=== PATIENT | male | born 1960 | race Caucasian/White ===

== ENCOUNTER 2018-06-06 14:39 | Inpatient (IN) | payer MEDICAID, OTHER ==
[~2018-06-06] VITALS: Ht 167.6 cm; Wt 82.9 kg
[2018-06-06] MEDS ORDERED: ESCI20TA PO (15:23)
[2018-06-06] MEDS ORDERED: ARIP10TA8 PO (15:23)
[2018-06-06] MEDS ORDERED: TRAZ-220 PO (15:23)
[2018-06-06 16:18] LABS: BASOPHILS % (AUTO) 1.2 % (0.0-2.0); EOSINOPHILS % (AUTO) 0.9 % (1.0-6.0); HEMATOCRIT 42.8 % (41-53); HEMOGLOBIN 14.9 g/dL (13.5-17.5); LYMPHOCYTES % (AUTO) 14.8 % (22.0-44.0); MEAN CORPUSCULAR HEMOGLOBIN 31.8 pg (26.0-34.0); MEAN CORPUSCULAR HGB CONC 34.8 G/dL (31.0-37.0); MEAN CORPUSCULAR VOLUME 92 fL (80-100); MONOCYTES # (AUTO) 0.4 K/uL (0.1-1.0); MONOCYTES % (AUTO) 6.3 % (2.0-9.0); NEUTROPHILS % (AUTO) 76.8 % (40.0-70.0); PLATELET COUNT (AUTO) 246 K/uL (150-450); RED BLOOD CELL COUNT(AUTO) 4.68 MIL/uL (4.50-5.90); RED CELL DISTRIBUTION WIDTH 13.2 % (11.5-14.5)
[2018-06-06 16:30] LABS: ANION GAP 8 mmol/L (8-16); CALCIUM, TOTAL 9.3 mg/dL (8.8-10.5); CARBON DIOXIDE 28 mmol/L (22-29); CHLORIDE 106 mmol/L (98-107); CREATININE 1.04 mg/dL (0.60-1.30); GLOMERULAR FILTR. RATE CALC > 60 mL/min (>60); GLUCOSE,RANDOM 85 mg/dL (70-110); POTASSIUM 4.2 mmol/L (3.5-5.1); SODIUM SERUM 142 mmol/L (136-145); UREA NITROGEN, BLOOD 12 mg/dL (7-18)
[2018-06-06 16:35] LABS: ALANINE AMINOTRANSFERASE 14 U/L (12-78); ALBUMIN 4.1 g/dL (3.4-5.0); ALKALINE PHOSPHATASE 79 U/L (46-116); ASPARTATE AMINOTRANSFERASE 9 U/L (15-37); BILIRUBIN,TOTAL 0.4 mg/dL (0.1-1.0); TOTAL PROTEIN, SERUM 7.8 g/dL (6.4-8.2)
[2018-06-06 17:26] LABS: AMPHET/METH SCREEN,URINE NEGATIVE (NEGATIVE); BARBITURATE SCREEN, URINE NEGATIVE (NEGATIVE); BENZODIAZEPINES SCREEN,URINE NEGATIVE (NEGATIVE); CANNABINOID SCREEN,URINE NEGATIVE (NEGATIVE); COCAINE SCREEN,URINE NEGATIVE (NEGATIVE); METHADONE SCREEN, URINE NEGATIVE (NEGATIVE); OPIATE SCREEN,URINE NEGATIVE (NEGATIVE); PHENCYCLIDINE SCREEN,URINE NEGATIVE (NEGATIVE)
[2018-06-06] MEDS ORDERED: LOPERAMIDE HCL 2 MG CAPSULE PO PRN (17:45)
[2018-06-06] MEDS ORDERED: MAG HYDROX/AL HYDROX/SIMETH ES 30 ML SUSPENSION UDCUP PO PRN (17:45)
[2018-06-06] MEDS ORDERED: GuaiFENesin/D-METHORPHAN [SUGAR-FREE] 200-20MG/10 ML SYRUP UDCUP PO PRN (17:45)
[2018-06-06] MEDS ORDERED: PROMETHAZINE HCL 25 MG TABLET PO PRN (17:45)
[2018-06-06] MEDS ORDERED: TUBERCULIN, PURIFIED PROTEIN DERIVATIVE 5 TU/0.1 ML SYRINGE ID ONE (17:45)
[2018-06-06] MEDS ORDERED: LORazepam 2 MG TABLET PO PRN (17:45)
[2018-06-06] MEDS ORDERED: ZOLPIDEM TARTRATE 10 MG TABLET PO PRN (17:45)
[2018-06-06] MEDS ORDERED: QUEtiapine FUMARATE 100 MG TABLET PO PRN (17:45)
[2018-06-06] MEDS ORDERED: HydrOXYzine PAMOATE 50 MG CAPSULE PO PRN (17:45)
[2018-06-06] MEDS ORDERED: ACETAMINOPHEN 325 MG TABLET PO PRN (17:45)
[2018-06-06] MEDS ORDERED: MAGNESIUM HYDROXIDE SUSPENSION 30 ML UDCUP PO PRN (17:45)
[2018-06-06 23:46] VITALS: BP 138/100
[2018-06-07 00:03] VITALS: BP 138/100
[2018-06-07] MEDS: THIAMINE HCL 100 MG TABLET PO SCH ×3 (00:23→16:59)
[2018-06-07] MEDS: TraZODone HCL 100 MG TABLET PO SCH ×2 (00:24→20:30)
[2018-06-07 08:32] VITALS: BP 140/97
[2018-06-07] MEDS: MULTIVITAMINS WITH MINERALS, THERAPEUTIC TABLET PO SCH (08:38)
[2018-06-07] MEDS: FOLIC ACID 1 MG TABLET PO SCH (08:38)
[2018-06-07] MEDS ORDERED: ESCITALOPRAM OXALATE 10 MG TABLET PO SCH (09:00)
[2018-06-07] MEDS ORDERED: ARIPiprazole 10 MG TABLET PO SCH (09:00)
[2018-06-07] MEDS ORDERED: BISACODYL 5 MG EC TABLET PO PRN (11:45)
[2018-06-07] MEDS ORDERED: CloNIDine HCL 0.1 MG TABLET PO PRN (11:45)
[2018-06-07 16:00] VITALS: BP 112/73
[2018-06-08 00:11] VITALS: BP 125/78
[2018-06-08 08:04] VITALS: BP 133/79
[2018-06-08] MEDS: ARIPiprazole 15 MG TABLET PO SCH (08:13)
[2018-06-08] MEDS: MULTIVITAMINS WITH MINERALS, THERAPEUTIC TABLET PO SCH (08:14)
[2018-06-08] MEDS: FOLIC ACID 1 MG TABLET PO SCH (08:14)
[2018-06-08] MEDS: THIAMINE HCL 100 MG TABLET PO SCH ×2 (08:14→16:23)
[2018-06-08] MEDS: ESCITALOPRAM OXALATE 20 MG TABLET PO SCH (08:14)
[2018-06-08 09:01] LABS: CHOL/HDL RATIO 4.5 (4.2-7.3); FREE T4 (FREE THYROXINE) 1.28 ng/dL (0.76-1.46); THYROID STIMULATING HORMONE 2.1 uIU/mL (0.36-3.74)
[2018-06-08 16:20] VITALS: BP 126/80
[2018-06-08] MEDS ORDERED: MIRTAZAPINE 15 MG TABLET PO SCH (21:00)
[2018-06-09 05:11] VITALS: BP 122/81
[2018-06-09 08:09] VITALS: BP 137/86
[2018-06-09] MEDS: ARIPiprazole 15 MG TABLET PO SCH (08:25)
[2018-06-09] MEDS: MULTIVITAMINS WITH MINERALS, THERAPEUTIC TABLET PO SCH (08:26)
[2018-06-09] MEDS: FOLIC ACID 1 MG TABLET PO SCH (08:26)
[2018-06-09] MEDS: THIAMINE HCL 100 MG TABLET PO SCH ×2 (08:41→16:34)
[2018-06-09] MEDS: ESCITALOPRAM OXALATE 20 MG TABLET PO SCH (08:41)
[2018-06-09 16:13] VITALS: BP 129/84
[2018-06-09] MEDS ORDERED: MIRTAZAPINE 15 MG TABLET PO SCH (21:00)
[2018-06-10 05:58] VITALS: BP 124/76
[2018-06-10] MEDS: FOLIC ACID 1 MG TABLET PO SCH (08:07)
[2018-06-10] MEDS: THIAMINE HCL 100 MG TABLET PO SCH ×2 (08:07→17:28)
[2018-06-10] MEDS: ESCITALOPRAM OXALATE 20 MG TABLET PO SCH (08:08)
[2018-06-10] MEDS: ARIPiprazole 15 MG TABLET PO SCH (08:08)
[2018-06-10] MEDS: MULTIVITAMINS WITH MINERALS, THERAPEUTIC TABLET PO SCH (08:08)
[2018-06-10 09:23] VITALS: BP 130/88
[2018-06-10] MEDS ORDERED: MIRT15 PO (13:19)
[2018-06-10] MEDS ORDERED: ESCI20TA36 PO (13:19)
[2018-06-10] MEDS ORDERED: ARIP15TA2 PO (13:19)
[2018-06-10 16:00] VITALS: BP 120/77
[2018-06-10] MEDS ORDERED: MIRTAZAPINE 15 MG TABLET PO SCH (21:00)
== END 2018-06-10 17:30 | disposition home or self-care (01) | DRG 751 ==
LOC: EMS 14:41 → B3A 20:30
PROVIDERS: ADMIT Psychiatry & Neurology Psychiatry; ATTEND Psychiatry & Neurology Psychiatry
DX: F33.3 Major depressive disorder, recurrent, severe with psychotic symptoms (principal); R45.851 Suicidal ideations; Z91.19 Patient's noncompliance with other medical treatment and regimen; K59.00 Constipation, unspecified; F15.90 Other stimulant use, unspecified, uncomplicated; F41.9 Anxiety disorder, unspecified; R03.0 Elevated blood-pressure reading, without diagnosis of hypertension; Z79.899 Other long term (current) drug therapy
CPT/HCPCS: 80074; 83036; 84439; 84443; G0480